=== PATIENT | male | born 1950 | race Caucasian/White ===

== ENCOUNTER → 2018-12-22 | Outpatient (CLI) | payer MEDICARE, OTHER ==
[~2018-12-22] MED LIST: HYDR-3455 PO; LVT.112T PO; PRD20T PO
--- NOTE | 2018-12-22 10:18 | Diagnostic Imaging Report ---
PROCEDURE: US Thyroid. TECHNIQUE: Multiple real-time grayscale images were obtained of the thyroid in various projections. INDICATION: Thyromegaly and dysphagia. FINDINGS: Right lobe of the thyroid measures 4.5 x 1.6 x 0.8 cm and the left lobe measures 3.8 x 1.0 x 1.0 cm. The isthmus is 3 mm in thickness. Both lobes of thyroid are heterogeneous. However, no discrete thyroid mass is detected. IMPRESSION: Thyroid parenchymal heterogeneity. No discrete thyroid mass is detected. Dictated by: Dictated on workstation # [id number]
== END ==
LOC: RAD 09:19
PROVIDERS: ATTEND Family Medicine
DX: E01.0 Iodine-deficiency related diffuse (endemic) goiter (principal); R13.10 Dysphagia, unspecified
CPT/HCPCS: 76536

== ENCOUNTER → 2020-06-26 | Outpatient (CLI) | payer MEDICARE, OTHER | LOC: LABNPT 06:04 | PROVIDERS: ATTEND Family Medicine | DX: J02.9 Acute pharyngitis, unspecified (principal); R07.89 Other chest pain; Z20.828 Contact with and (suspected) exposure to other viral communicable diseases | CPT/HCPCS: 87635 ==

== ENCOUNTER → 2020-10-25 | Outpatient (CLI) | payer MEDICARE, OTHER ==
[2020-10-25 12:15] LABS: HEMOGLOBIN 15.3 g/dL (13.3-17.7); WHITE BLOOD COUNT 7.2 10^3/uL (4.3-11.0)
[2020-10-25 12:30] LABS: CALCIUM 9.7 MG/DL (8.5-10.1); CREATININE SERUM 1.26 MG/DL (0.60-1.30)
== END ==
LOC: LAB 11:49
PROVIDERS: ATTEND Ophthalmology
DX: G43.119 Migraine with aura, intractable, without status migrainosus (principal)
CPT/HCPCS: 36415; 80048; 85027; 85652; 86141

== ENCOUNTER → 2021-04-30 | Outpatient (CLI) | payer MEDICARE, OTHER ==
[2021-04-30 09:31] LABS: BASOPHILS # (AUTO) 0.1 10^3/uL (0.0-0.1); BASOPHILS % (AUTO) 1 % (0-10); EOSINOPHILS # (AUTO) 0.2 10^3/uL (0.0-0.3); EOSINOPHILS % (AUTO) 3 % (0-10); HEMATOCRIT 46 % (40-54); HEMOGLOBIN 15.5 g/dL (13.3-17.7); LYMPHOCYTES # (AUTO) 1.5 10^3/uL (1.0-4.0); LYMPHOCYTES % (AUTO) 31 % (12-44); MEAN CORPUSCULAR HEMOGLOBIN 34 pg (25-34); MEAN CORPUSCULAR HGB CONC 34 g/dL (32-36); MEAN CORPUSCULAR VOLUME 100 fL (80-99); MEAN PLATELET VOLUME 9.5 fL (9.0-12.2); MONOCYTES # (AUTO) 0.4 10^3/uL (0.0-1.0); MONOCYTES % (AUTO) 8 % (0-12); NEUTROPHILS # (AUTO) 2.8 10^3/uL (1.8-7.8); NEUTROPHILS % (AUTO) 57 % (42-75); PLATELET COUNT 267 10^3/uL (130-400); WHITE BLOOD COUNT 4.9 10^3/uL (4.3-11.0)
[2021-04-30 09:57] LABS: ALBUMIN 4.2 GM/DL (3.2-4.5); BILIRUBIN,TOTAL 0.7 MG/DL (0.1-1.0); CALCIUM 9.4 MG/DL (8.5-10.1); CREATININE SERUM 1.14 MG/DL (0.60-1.30); POTASSIUM 4.9 MMOL/L (3.6-5.0); TOTAL PROTEIN 8.1 GM/DL (6.4-8.2)
[2021-04-30 10:18] LABS: FREE T4 (FREE THYROXINE) 1.1 NG/DL (0.70-1.48)
== END ==
LOC: LAB 08:57
PROVIDERS: ATTEND Family Medicine
DX: E78.5 Hyperlipidemia, unspecified (principal); E03.9 Hypothyroidism, unspecified; R35.1 Nocturia; R53.83 Other fatigue
CPT/HCPCS: 36415; 80053; 80061; 83036; 84153; 84439; 84443; 85025

== ENCOUNTER 2021-05-17 08:18 | Emergency (ER) | payer MEDICARE, OTHER ==
[~2021-05-17] VITALS: Ht 182 cm; Wt 82.0 kg
--- NOTE | 2021-05-17 08:53 | ED Lower Extremity ---
General Chief Complaint: Lower Extremity Stated Complaint: R ANKLE PAIN,SWELLING Nursing Triage Note: PT CO OF R ANKLE PAIN FROM SLIPPING ON STEP LAST PM Source: patient Exam Limitations: no limitations History of Present Illness Date Seen by Provider: May 17, 2021 Time Seen by Provider: 08:35 Initial Comments Patient to the ER by private conveyance from home with chief complaint of about 6:00 yesterday evening he was running up some stairs with his dog and missed the last step causing a popping sensation in his right ankle. He has had increased swelling despite elevation ice ibuprofen and Tylenol. He has no previous history of fracture of the ankle. Significant swelling on his right ankle and after couple doses of Advil his pain was well enough he can sleep. He is not on blood thinners. Allergies and Home Medications Allergies Coded Allergies: No Known Drug Allergies (Unverified , 01/22/15) Home Medications Hydrocodone/Acetaminophen 1 Each Tablet, 1 EACH PO Q4H Prescribed by: SONJA NEAL MD on 03/21/16 1303 Levothyroxine Sodium 112 Mcg Tab, 112 MCG PO DAILY, (Reported) Prednisone 20 Mg Tab, 20 MG PO BID Prescribed by: SONJA NEAL MD on 03/21/16 1302 Patient Home Medication List Home Medication List Reviewed: Yes Review of Systems Constitutional: No chills, No diaphoresis EENTM: No ear discharge, No ear pain Respiratory: No cough, No short of breath Cardiovascular: No chest pain, No edema Gastrointestinal: No abdominal pain, No nausea, No vomiting Musculoskeletal: see HPI All Other Systems Reviewed Negative Unless Noted: Yes Past Blteymf-Jdhcoq-Eqzkwd Hx Patient Social History Tobacco Use?: No Seasonal Allergies Seasonal Allergies: No Past Medical History Heart Murmur Gastroesophageal Reflux Hypothyroidsim Physical Exam Vital Signs Vital Signs - First Documented 05/17/21 08:35 Temp 35.9 Pulse 74 Resp 16 B/P (MAP) 152/86 (108) Pulse Ox 96 Capillary Refill : Less Than 3 Seconds Height, Weight, BMI Height: 6'" Weight: 185lbs. oz. 83.641483tz; 24.00 BMI Method:Stated General Appearance: WD/WN, mild distress HEENT: PERRL/EOMI, pharynx normal Respiratory: no respiratory distress, no accessory muscle use Knees: bilateral knee non-tender, bilateral knee normal inspection, bilateral knee normal range of motion, bilateral knee no evidence of injury, bilateral knee other (Superficial abrasion anterior right knee and left medial knee) Ankles: left ankle non-tender, left ankle normal inspection; bilateral ankle normal range of motion; left ankle no evidence of injury; right ankle pain, right ankle soft tissue tenderness, right ankle swelling (moderate) Feet: bilateral foot non-tender; left foot normal inspection; bilateral foot normal range of motion; left foot no evidence of injury; right foot swelling Neurologic/Tendon: normal sensation, normal motor functions, normal tendon functions, responds to pain Neurologic/Psychiatric: no motor/sensory deficits, alert, normal mood/affect, oriented x 3 Procedures/Interventions Splinting and Joint Reduction : Location: Right ankle Pre-Proc Neuro Vasc Exam: normal Post-Proc Neuro Vasc Exam: unchanged from pre-exam Hand-Made Type: fiberglass Splint Application: Short Leg Progress/Results/Core Measures Results/Orders My Orders Orders - TEO THRASHER Ankle, Right, 3 Views (05/17/21 08:47) Vital Signs/I&O 05/17/21 08:35 Temp 35.9 Pulse 74 Resp 16 B/P (MAP) 152/86 (108) Pulse Ox 96 Blood Pressure Mean: 108 Progress Progress Note : Time: 08:53 Progress Note Ankle sprain versus fracture. 3 views right ankle. Patient denies needing anything for pain. Diagnostic Imaging Diagonstic Imaging: Xray Plain Films/CT/US/NM/MRI: ankle (Right) Comments [facility], [place] NAME: KENDALL PAYAN Gisel [facility] REC#: [id number] PT STATUS: REG ER : 1950 PHYSICIAN: TEO THRASHER MD ADMIT DATE: 05/17/21/ER Draft Date of Exam:05/17/21 ANKLE, RIGHT, 3 VIEWS INDICATION: ankle pain TECHNIQUE: Three views of the right ankle CORRELATION STUDY: None FINDINGS: Obliquely oriented fracture through the distal fibula shaft. There is a longitudinally oriented fracture of the distal posterior tibia. Slight dorsal displacement of the main fracture fragment. The distal medial malleolus appears to be intact. Ankle mortise alignment appears to be maintained. Talar dome intact. Prominent soft tissue edema is present. IMPRESSION: Mildly displaced distal fibula and posterior tibia fracture with associated soft tissue swelling. Dictated on workstation # [id number] Dict: 05/17/21903 Trans: 05/17/21 0940 [facility] [id number] Interpreted by: CHRISTINA WALTER DO Electronically signed by: Reviewed: Reviewed by Me Departure Impression Primary Impression: Ankle fracture Qualified Codes: S82.891A - Other fracture of right lower leg, initial encounter for closed fracture Disposition: HOME, SELF-CARE Condition: Stable Departure-Patient Inst. Decision time for Depature: 10:44 Referrals: STACIA PRICE DO (PCP/Family) Primary Care Physician BALDEV EVANGELISTA MD, MICHAEL P MD Patient Instructions: Splint Care ED, Ankle Fracture (DC) Add. Discharge Instructions: Keep the ankle elevated above the level of your heart when not in use. Use the crutches and do not bear any weight until after you speak to the orthopedic surgeon. Ice 20 minutes on every 2 hours while awake for the next 2 to 3 days to reduce swelling and pain. Tylenol 1000 mg every 8 hours as necessary for pain. Ibuprofen 800 mg every 8 hours as necessary for pain. Hydrocodone 1 tablet every 6 hours as necessary for severe breakthrough pain. Call the orthopedic surgeon of your choice and request follow-up appointment sometime in the next week. If you have numbness or tingling in her toes then loosen the [place] wraps and rewrap them looser and elevate your foot. [facility] . All discharge instructions reviewed with patient and/or family. Voiced understanding. Scripts Hydrocodone/Acetaminophen (Hydrocodone-Acetamin 5-325 mg) 1 Each Tablet 1 TAB PO Q6H PRN for PAIN-MODERATE (5-7), #10 TAB 0 Refills Prov: TEO THRASHER 05/17/21 TEO THRASHER May 17, 2021 08:53
--- NOTE | 2021-05-17 09:40 | Diagnostic Imaging Report ---
INDICATION: ankle pain TECHNIQUE: Three views of the right ankle CORRELATION STUDY: None FINDINGS: Obliquely oriented fracture through the distal fibula shaft. There is a longitudinally oriented fracture of the distal posterior tibia. Slight dorsal displacement of the main fracture fragment. The distal medial malleolus appears to be intact. Ankle mortise alignment appears to be maintained. Talar dome intact. Prominent soft tissue edema is present. IMPRESSION: Mildly displaced distal fibula and posterior tibia fracture with associated soft tissue swelling. Dictated by: Dictated on workstation # [id number]
[2021-05-17] MEDS ORDERED: ACHD5005 PO (10:52)
[2021-05-17 11:11] VITALS: BP 138/78
== END 2021-05-17 11:11 | disposition home or self-care (01) ==
LOC: EDUNIT# 08:18 → ER 08:22
DX: S82.431A Displaced oblique fracture of shaft of right fibula, initial encounter for closed fracture (principal); S82.391A Other fracture of lower end of right tibia, initial encounter for closed fracture; S80.211A Abrasion, right knee, initial encounter; S80.212A Abrasion, left knee, initial encounter; E03.9 Hypothyroidism, unspecified; Z79.890 Hormone replacement therapy; Z79.899 Other long term (current) drug therapy; W10.8XXA Fall (on) (from) other stairs and steps, initial encounter
CPT/HCPCS: 29515; 73610

== ENCOUNTER → 2021-05-21 | Outpatient (CLI) | payer MEDICARE, OTHER ==
[~2021-05-21] MED LIST changes: +ACHD5005 PO
== END ==
LOC: LABNPT 06:17
PROVIDERS: ATTEND Podiatrist
DX: Z01.812 Encounter for preprocedural laboratory examination (principal); Z20.822 Contact with and (suspected) exposure to COVID-19
CPT/HCPCS: 87635

== ENCOUNTER → 2021-07-07 | Outpatient (CLI) | payer MEDICARE, OTHER ==
--- NOTE | 2021-07-07 11:56 | Diagnostic Imaging Report ---
PROCEDURE: US right lower extremity venous. TECHNIQUE: Multiple real-time grayscale images were obtained over the right lower extremity in various projections. Additional spectral analysis and color Doppler duplex images were also obtained. INDICATION: Right lower extremity pain. There is no evidence of right lower extremity DVT. Right lower extremity deep venous system shows normal compressibility with normal response to augmentation and Valsalva. No fluid collection or mass is detected. IMPRESSION: No evidence of right lower extremity DVT. Dictated by: Dictated on workstation # [id number]
== END ==
LOC: RAD 11:05
PROVIDERS: ATTEND Orthopaedic Surgery
DX: M79.661 Pain in right lower leg (principal)

== ENCOUNTER → 2021-07-07 | Outpatient (CLI) | payer MEDICARE, OTHER | LOC: RAD 10:59 | PROVIDERS: ATTEND Podiatrist ==

== ENCOUNTER → 2022-05-28 | Outpatient (CLI) | payer MEDICARE, OTHER ==
[2022-05-28 09:13] LABS: BASOPHILS # (AUTO) 0.1 10^3/uL (0.0-0.1); BASOPHILS % (AUTO) 1 % (0-10); EOSINOPHILS # (AUTO) 0.2 10^3/uL (0.0-0.3); EOSINOPHILS % (AUTO) 3 % (0-10); HEMATOCRIT 43 % (40-54); HEMOGLOBIN 14.6 g/dL (13.3-17.7); LYMPHOCYTES # (AUTO) 1.4 10^3/uL (1.0-4.0); LYMPHOCYTES % (AUTO) 24 % (12-44); MEAN CORPUSCULAR HEMOGLOBIN 34 pg (25-34); MEAN CORPUSCULAR HGB CONC 34 g/dL (32-36); MEAN CORPUSCULAR VOLUME 99 fL (80-99); MEAN PLATELET VOLUME 9.3 fL (9.0-12.2); MONOCYTES # (AUTO) 0.5 10^3/uL (0.0-1.0); MONOCYTES % (AUTO) 8 % (0-12); NEUTROPHILS # (AUTO) 3.6 10^3/uL (1.8-7.8); NEUTROPHILS % (AUTO) 63 % (42-75); PLATELET COUNT 292 10^3/uL (130-400); WHITE BLOOD COUNT 5.7 10^3/uL (4.3-11.0)
[2022-05-28 09:28] LABS: ALBUMIN 4.3 GM/DL (3.2-4.5); POTASSIUM 4.7 MMOL/L (3.6-5.0)
[2022-05-28 09:29] LABS: CALCIUM 9.8 MG/DL (8.5-10.1)
[2022-05-28 09:30] LABS: TOTAL PROTEIN 7.9 GM/DL (6.4-8.2)
[2022-05-28 09:32] LABS: BILIRUBIN,TOTAL 0.9 MG/DL (0.1-1.0)
[2022-05-28 09:34] LABS: CREATININE SERUM 1.1 MG/DL (0.60-1.30)
[2022-05-28 09:59] LABS: FREE T4 (FREE THYROXINE) 1.17 NG/DL (0.70-1.48)
== END ==
LOC: LAB 09:01
PROVIDERS: ATTEND Family Medicine
DX: Z00.00 Encounter for general adult medical examination without abnormal findings (principal); E03.9 Hypothyroidism, unspecified; E78.2 Mixed hyperlipidemia; I10 Essential (primary) hypertension
CPT/HCPCS: 80053; 80061; 84439; 84443; 85025; G0103; 36415; 84153